=== PATIENT | female | born 2000 | race Caucasian/White ===

== ENCOUNTER 2022-04-05 10:44 | Outpatient (CLI) | payer BC, SELFPAY ==
--- NOTE | 2022-04-05 11:00 | CRLHL7_ITS ---
For Patients: As a result of the Century Cures Act, medical imaging exams and procedure reports are released immediately into your electronic medical record. You may view this report before your referring provider. If you have questions, please contact your health care provider. INDICATION: immediate hemorrhage COMPARISON: none TECHNIQUE: 2D mai scale and color Doppler images were acquired of the pelvis using a transabdominal and transvaginal approach. FINDINGS: Sonographic images demonstrate a normal size and smooth outer contour of the uterus. Uterus measures 10.4 cm in length by 6.1 cm in AP diameter by 7.8 cm in transverse dimension. The myometrium has a mildly heterogeneous echotexture. The endometrial lining appears normal and measures 4 mm in composite thickness. The right ovary measures 4.4 x 2.8 x 3.1 cm in size and the left ovary measures 2.9 x 1.1 x 2.2 cm. The ovaries demonstrate normal arterial and venous blood flow on color Doppler analysis. There are no suspicious fluid collections within the cul-de-sac. Simple right ovarian cyst measuring 3.1 cm. IMPRESSION: Mildly heterogeneous myometrium without focal leiomyoma. Endometrium appears normal and measures 4 millimeters. Dictated by Jacob Rabago MD @ 04/05/2022 11:54:27 AM (Electronically Signed)
== END 2022-04-05 10:45 | disposition home or self-care (01) ==
LOC: US 10:46
PROVIDERS: Visit Provider Registered Nurse
DX: O72.1 Other immediate postpartum hemorrhage (principal)
CPT/HCPCS: 76830; 76856

== ENCOUNTER 2023-02-08 13:47 | Outpatient (CLI) | payer BC, SELFPAY | END 2023-02-08 13:48 | disposition home or self-care (01) | PROVIDERS: Visit Provider Family Medicine | DX: R63.4 Abnormal weight loss (principal); R59.1 Generalized enlarged lymph nodes; Z11.3 Encounter for screening for infections with a predominantly sexual mode of transmission | CPT/HCPCS: 80053; 84443; 86703 ==

== ENCOUNTER 2023-04-04 11:03 | Outpatient (CLI) | payer BC, SELFPAY | END 2023-04-04 11:04 | disposition home or self-care (01) | PROVIDERS: Visit Provider Family Medicine | DX: L65.9 Nonscarring hair loss, unspecified (principal); R63.4 Abnormal weight loss | CPT/HCPCS: 84443 ==

== ENCOUNTER 2025-05-13 17:23 | Emergency (ER) | payer BC, SELFPAY ==
--- OUTSIDE RECORDS SUMMARY | 2025-05-08 17:07 | XMS_ITS | Encounter Summary ---
Author Organization [facility] Address [address] [place] [address] Care Team Providers Care Drum Cleaner Name Role Phone None Reported, Pcp Primary Care Provider Unavail able Reason for Visit * Reason Comments Vaginal Bleeding - Patient pres ents with concern for miscarriage. Patient states that she had pink discharge yesterday, 05/07/25, and none today. Patient has a positive test 2 weeks ago. Encounter Details Date Type Department Care Team (Late st Contact Info) Description 05/08/2025 5:07 PM CDT - 05/08/2025 6:32 PM CDT Emergency [place] [facility] [address] [place] [phone] Haile Trotter D.OMoi [address] [place] [id number] Bleeding Vaginal (Primary Dx) Discharge Disposition: Home or Self Care Social History Tobacco Use Types Packs/Day Years Used Date Smoking Tobacco: Former Cigarettes Smokeless Tobacco: Never Tobacco Cessation:Counseling Given: Not Answered Alcohol Use Standard Drinks/Week Comments Not Currently 0 (1 standard drink = 0.6 oz pur e alcohol) Comments Yes Sex and Gender Information Value Date Recorded Sex Assigned at Not on file 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 Gender Identity Not on file Sexual Orientation Not on file documented as of this encounter Last Filed Vital Signs Vital Sign Reading Time Taken Comments Blood Pressure 124/89 05/08/2025 6:31 PM CDT Pulse 99 05/08/2025 6:31 PM CDT Temperature 37.2 C (99 F) 05/08/2025 6:31 PM CDT Respiratory Rate 16 05/08/2025 6:31 PM CDT Oxygen Saturation 98% 05/08/2025 6:31 PM CDT Inhaled Oxygen Concentration - - Weight 46.7 kg (103 lb) 05/08/2025 4:43 PM CDT Height 162.6 cm (5' 4.02) 05/08/2025 4:43 PM CD T Body Mass Index 17.67 05/08/2025 4:43 PM CDT documented in this encounter Discharge Instructions * Discharge Instructions* Haile Trotter D.O. - 05/08/2025 6:29 PM CDT Your blood test was negative today and the ultrasound does not show any evidence of or ectopic. It is very possible it was a very early with miscarriage. You may use tylenol/ibuprofen as instructed if needed for pain/cramping Follow-up with your doctor as instructed or return to ED sooner if symptoms persist or worsen or any new concerns especially any worsening pain or bleeding. * Attachments The following attachments cannot be sent through Care Everywhere. * Miscarriage: What to Know (Albanian) documented in this encounter Medications at Time of Discharge albuterol (ProAir HFA) 90 mcg/actuation inhaler ProAir HFA 90 mcg/inh inhalation aerosol See Instructions, 2 puff(s) Inhalation every 3 hrs as needed for shortness of breath or wheezing, 1 each, 2 Refill(s) 01/14/2015 guanFACINE (Tenex) 1 mg tablet Take 0.5 tablets by mouth 2 (two) times a day. 01/13/2015 documented as of this encounter ED Notes * Haile Trotter D.O. - 05/08/2025 6:32 PM CDT SUBJECTIVE CHIEF COMPLAINT/REASON FOR VISIT Vaginal Bleeding - (Patient presents with concern for miscarriage. Patient states that she had pink discharge yesterday, 05/07/25, and none today. Patient has a positive test 2 weeks ago. ) HISTORY OF PRESENT ILLNESS Patient is 25-year-old female who presents today with vaginal bleeding concern for miscarriage. Patient reports her last menstrual cycle was March 19. Reports she took on 2 weeks ago that was positive. Reports over the last couple of days she has had light bleeding similar to previous periods. Patient denies any abdominal or pelvic pain, dizziness or vomiting. History provided by: Patient science interpreter needed/used: no REVIEW OF SYSTEMS Constitutional: Negative for fever. HENT: Negative for congestion. Respiratory: Negative for cough. Gastrointestinal: Negative for abdominal pain, diarrhea, nausea and vomiting. Genitourinary: Positive for vaginal bleeding. Musculoskeletal: Negative for back pain. Skin: Negative for wound. Neurological: Negative for weakness. All other systems reviewed and are negative. OBJECTIVE Initial Vitals Temperature 05/08/25 1646 37.6 ??C Pulse Rate 05/08/25 1646 109 Heart Rate -- Resp Rate 05/08/25 1646 18 Blood Pressure 05/08/25 1646 (!) 120/92 SpO2 05/08/25 1646 97 % Pain Score 05/08/25 1642 0 - No pain PHYSICAL EXAMINATION Constitutional: Nursing note and vitals reviewed. No distress. HENT: Head: Normocephalic and atraumatic. Nose: Nose normal. No nasal discharge. Mouth/Throat: Mucous membranes are moist. Eyes: Conjunctivae are normal. Neck: Neck supple. Cardiovascular: Exam reveals no friction rub. Pulmonary/Chest: Effort normal. No tachypnea. No respiratory distress. She has no rhonchi. Abdominal: Soft. There is no abdominal tenderness. There is no rebound and no guarding. Musculoskeletal: General: Normal range of motion. Cervical back: Normal range of motion and neck supple. Neurological: Alert. She is not disoriented. She exhibits normal muscle tone. Skin: Skin is warm and dry. She is not diaphoretic. Psychiatric: She has a normal mood and affect. Behavior is normal. ASSESSMENT/PLAN Assessment and Plan Patient is 25-year-old female who presents today with vaginal bleeding concern for miscarriage. SeeHPI for details. Pt afebrile, VSS on arrival to ED On exam, pt well appearing, in NAD, abdomen benign Labs obtained which resulted with a negative hCG, Rh positive, CBC within normal limits Pelvic ultrasound with no evidence of IUP or ectopic Given negative hCG suspect it was possibly very early with subsequent miscarriage. Discussed lab and imaging results with patient as well as plan for discharge with supportive care instructions, outpatient follow-up strict return precautions given including any worsening pain or bleeding.Patient expressed understanding agreed with plan will follow-up return the ED if any concerns.. Final Diagnoses: as of 05/08/251832 Bleeding Vaginal Haile Trotter D.O. 05/08/251834 documented in this encounter Plan of Treatment Not on file documented as of this encounter Procedures Procedure Name Priority Date/Time Associated Diagnosis Comments US OB FIRST TRIMESTER AND TRANSVAGINAL RAD - Semiurgent (Fast; most ED patients; some inpatients) 05/08/2025 5:51 PM CDT ABORH, RBC STAT 05/08/2025 5:03 PM CDT CBC WITH DIFFERENTIAL, B STAT 05/08/2025 5:03 PM CDT HUMAN CHORIONIC GONADOTROPIN (HCG), LUKE, STAT 05/08/2025 5:03 PM CDT documented in this encounter Results * US OB First Trimester and Transvaginal (05/08/2025 5:51 PM CDT) Anatomical Region Laterality Modality Body, Ultrasound OB RST LOS, Ultrasound ARZ LOS, Ultrasound FLA LOS N/A Ultrasound Impressions 05/08/2025 6:19 PM CDT No evidence of intrauterine . No findings to suggest ectopic . Recommend correlation to clinical symptoms and beta hCG, and close clinical follow-up. . Small amount of fluid and debris along the endometrial canal. Narrative 05/08/2025 6:19 PM CDT EXAM: US OB FIRST TRIMESTER AND TRANSVAGINAL COMPARISON: None TECHNIQUE: Transabdominal and Transvaginal FINDINGS: Number of Gestations: N/A Gestational age and BENNY by LMP or OB/EHR assignment: N/A INTRAUTERINE Embryo: Not seen, [place]ump Length: N/A Gestational Sac: Not seen Yolk Sac: Not seen Placenta Location: . N/A Age and BENNY by current ultrasound measurements: N/A, Cardiac activity: N/A Uterus: No unexpected findings. Right Ovary/Adnexa: Normal. Left Ovary/Adnexa: Normal. Cervical length:: Normal, greater than 2.5cm TV Endometrium: No endometrial thickening. Small amount of fluid and debris along the endometrial canal. Intraperitoneal Fluid: None. Procedure Note Abimael Banks M.D. - 05/08/2025 EXAM: US OB FIRST TRIMESTER AND TRANSVAGINAL COMPARISON: None TECHNIQUE: Transabdominal and Transvaginal FINDINGS: Number of Gestations: N/A Gestational age and BENNY by LMP or OB/EHR assignment: N/A INTRAUTERINE Embryo: Not seen, [place] Length: N/A Gestational Sac: Not seen Yolk Sac: Not seen Placenta Location: . N/A Age and BENNY by current ultrasound measurements: N/A, Cardiac activity: N/A Uterus: No unexpected findings. Right Ovary/Adnexa: Normal. Left Ovary/Adnexa: Normal. Cervical length:: Normal, greater than 2.5cm TV Endometrium: No endometrial thickening. Small amount of fluid and debrisalong the endometrial canal. Intraperitoneal Fluid: None. IMPRESSION: No evidence of intrauterine . No findings to suggest ectopicpregnancy. Recommend correlation to clinical symptoms and beta hCG, andclose clinical follow-up. . Small amount of fluid and debris along theendometrial canal. us Haile RAMOS OB US PROCEDURES Final R esult * hCG (Human Chorionic Gonadotropin), Quantitative, (05/08/2025 5:03 PM CDT) HCG, Quantitative, , P <1.0 <5 IU/L 05/08/2025 5:33 PM CDT NPRG Blood (Blood, Venous) 05/08/2025 5:03 PM CDT 05/08/2025 5:14 PM CDT us Haile Trotter D.O. LAB BLOOD ADD-ON Final Resul t Performing Organization Address City/[facility]/ZIP Co de Phone Number [facility] [address] [place] [address], [facility] [place] [address] [address] [place] [address] * ABO/Rh, RBC (05/08/2025 5:03 PM CDT) ABO Group O 05/08/2025 5:5 3 PM CDT NPRG Rh Type POS 05/08/2025 5:5 3 PM CDT NPRG Blood (Blood, Venous) 05/08/2025 5:03 PM CDT 05/08/2025 5:14 PM CDT us Haile Trotter D.O. LAB BLOOD BANK TEST ORDERABL ES Final Result Performing Organization Address [facility]/ZIP Co de Phone Number [facility] [address] [place] [address], [facility] [address] [address] * CBC with Differential, Blood (05/08/2025 5:03 PM CDT) Hemoglobin 13.3 11.6 - 15.0 g/dL 05/08/2025 5:17 PM CDT NPRG Hematocrit 40.5 35.5 - 44.9 % 05/08/2025 5:17 PM CDT NPRG Erythrocytes 4.52 3.92 - 5.13 x10(12)/L 05/08/2025 5:17 PM CDT NPRG MCV 89.6 78.2 - 97.9 fL 05/08/2025 5:17 PM CDT NPRG RBC Distrib Width 12.9 12.2 - 16.1 % 05/08/2025 5:17 PM CDT NPRG Platelet Count 232 157 - 371 x10(9)/L 05/08/2025 5:17 PM CDT NPRG Leukocytes 6.9 3.4 - 9.6 x10(9)/L 05/08/2025 5:17 PM CDT NPRG Neutrophils 4.33 1.56 - 6.45 x10(9)/L 05/08/2025 5:17 PM CDT NPRG Lymphocytes 2.15 0.95 - 3.07 x10(9)/L 05/08/2025 5:17 PM CDT NPRG Monocytes 0.34 0.26 - 0.81 x10(9)/L 05/08/2025 5:17 PM CDT NPRG Eosinophils 0.07 0.03 - 0.48 x10(9)/L 05/08/2025 5:17 PM CDT NPRG Basophils <0.04 0.01 - 0.08 x10(9)/L 05/08/2025 5:17 PM CDT NPRG Blood (Blood, Venous) 05/08/2025 5:03 PM CDT 05/08/2025 5:14 PM CDT us Haile Trotter D.O. LAB BLOOD ADD-ON Final Resul t [facility] [address] [place] [address], [facility] [address] [place] [address] documented in this encounter Visit Diagnoses Diagnosis Bleeding Vaginal- Primary documented in this encounter Additional Health Concerns Assessment Noted Time PHQ-9 Depression Total Score: 8 06/09/20 17 12:34 PM CDT documented as of this encounter Care Teams Drum Cleaner Relationship Specialty Start Date End Date None Reported, Pcp PCP - General Family Medicine 07/08/24 documented as of this encounter
--- OUTSIDE RECORDS SUMMARY | 2025-05-13 17:26 | XMS_ITS | Clinical Summary ---
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 For routine questions regarding patient records, call [phone] during business hours, M-F 8:00 AM - 5:00 PM Central Time. Record requests for emergency care only can be directed to [phone] at any time.[facility] Allergies Active Allergy Reactions Criticality Noted Date Comments Citalopram Rash,Nausea And Vomiting High 06/30/2015 Fluoxetine Rash,Nausea And Vomiting High 06/30/2015 Latex, Natural Rubber Itching,Rash,Short ness of breath (Reselect Reaction) High 09/06/2019 Medications guanFACINE (Tenex) 1 mg tablet Take 0.5 tablets by mouth 2 (two) times a day. 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 Bleeding Vaginal (Primary Dx) Discharge Disposition: Home or Self Care from Last 3 Months Immunizations Immunization Administration Dates Next Due 4vHPV (discontinued) 03/07/2015,07/31/2013 DTaP (Daptacel) 1999 DTaP (Infanrix, [employer]) 04/09/2003,02/01/2000, 1999 HepB, Unspecified 04/24/2004 Hib-HepB 04/21/2000 IPV 04/21/2000 Influenza Split 07/12/2006 Influenza, Unspecified 06/09/2017,07/31/2007 MMR 04/21/2000 Tdap 07/08/2024,12/24/2021,01/14/2020 ,08/09/2014 CARRIE 10/04/2000 Family History Medical History Relation Name Comments Alcohol abuse Father Chronic pain Mother Depression Mother Relation Name Status Comments Father Mother Social History Tobacco Use Types Packs/Day Years Used Date Smoking Tobacco: Former Cigarettes Smokeless Tobacco: Never Tobacco Cessation:Counseling Given: Not Answered Alcohol Use Standard Drinks/Week Comments Not Currently 0 (1 standard drink = 0.6 oz pur e alcohol) Comments Yes Sex and Gender Information Value Date Recorded Sex Assigned at Not on file 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 Gender Identity Not on file Sexual Orientation Not on file Last Filed Vital Signs Vital Sign Reading [...] Mass Index 17.67 05/08/2025 4:43 PM CDT Plan of Treatment Health Maintenance Due Date Last Done Comments Depression Monitoring (PHQ-9) 1999 HIV Screening 1999 Hepatitis C Screening 1999 Cervical/Vaginal Cancer Screening 07/17/2024 07/17/2021 Depression Monitoring (PHQ-9 for quality tracking) 08/29/2024 COVID-19 Vaccine ( season) 2025 Influenza Vaccine (#1) 2025 7, 04/29/2015, 09/05/2014, Additional history exists Tobacco Cessation counseling 05/08/2026 05/08/2025 DTaP,Tdap,and Td Vaccines (9 - Td or Tdap) 07/08/2034 07/08/2024, 12/24/2021, 01/14/2020, Additional history exists RSV vaccine - (32-36 weeks) or 60+ years (1 - 1-dose 75+ series) 2074 IPV Vaccines Completed 04/09/2003, 03/30, 1999, Additional history exists Hepatitis B Vaccines Completed 04/24/2004, 10/04/2000, 04/21/2000, Additional history exists Varicella Vaccines Completed 08/09/2014, 10/04/2000 HPV Vaccines Completed 03/07/2015, 09/30, 08/09/2014, Additional history exists Hepatitis B Screening Discontinued 08/27/2019 Pneumococcal vaccine (0-49 years) Aged Out No longer eligible based on patient's age to complete this topic Procedures Procedure Name Priority Date/Time Associated Diagnosis Comments US OB FIRST TRIMESTER AND TRANSVAGINAL RAD - Semiurgent (Fast; most ED patients; some inpatients) 05/08/2025 5:51 PM CDT HUMAN CHORIONIC GONADOTROPIN (HCG), LUKE STAT 05/08/2025 5:03 PM CDT ABORH, RBC STAT 05/08/2025 5:03 PM CDT CBC WITH DIFFERENTIAL, B STAT 05/08/2025 5:03 PM CDT from Last 3 Months Results * US OB First Trimester and [...] OB/EHR assignment: N/A INTRAUTERINE Embryo: Not seen, [place]-Rump Length: N/A Gestational Sac: Not seen Yolk [...] OB/EHR assignment: N/A INTRAUTERINE Embryo: Not seen, [place]ump Length: N/A Gestational Sac: Not seen Yolk [...] and debris along theendometrial canal. us Haile Trotter D.O. IMG OB US PROCEDURES Final R esult * ABO/Rh, RBC (05/08/2025 5:03 PM CDT) ABO Group O 05/08/2025 5:5 3 PM CDT NPRG Rh Type POS 05/08/2025 5:5 3 PM CDT NPRG Blood (Blood, Venous) 05/08/2025 5:03 PM CDT 05/08/2025 5:14 PM CDT us Haile Trotter D.O. LAB BLOOD BANK TEST ORDERABL ES Final Result [facility] [address] [place] [address], [facility] [address] [place] [address] * CBC with Differential, Blood (05/08/2025 5:03 [...] D.O. LAB BLOOD ADD-ON Final Resul t [facility] [address] [place] [address], [facility] [address] [place] [address] * hCG (Human Chorionic Gonadotropin), Quantitative, (05/08/2025 5:03 PM CDT) HCG, Quantitative, , P <1.0 <5 IU/L 05/08/2025 5:33 PM CDT NPRG Blood (Blood, Venous) 05/08/2025 5:03 PM CDT 05/08/2025 5:14 PM CDT us Haile Trotter D.O. LAB BLOOD ADD-ON Final Resul t [facility] [address] [place] [address], [facility] [address] [place] [address] from Last 3 Months Insurance [facility] Care Teams Wash Oil Cooler Operator Relationship Specialty Start Date End Date None Reported, Pcp PCP - General Family Medicine 07/08/24
[2025-05-13 18:13] VITALS: BP 123/80; PULSE 106; RESP 20; TEMP 37.9; O2SAT 98; BMI 18.2
[2025-05-13 19:13] LABS: PCR FLU A Negative PCR FLU A (Negative); PCR FLU B Negative PCR FLU B (Negative); PCR RSV Negative PCR RSV (Negative); SARS PCR* Negative SARS-CoV-2 (Negative)
--- NOTE | 2025-05-13 19:26 | ED.GENADULT ---
HPI - General Adult General Time Seen by Provider: 19:26 Date Seen: 05/13/25 Chief complaint: Cough Stated complaint: Cant keep food down Time Seen by Provider: 05/13/25 19:12 Source: patient, family and RN notes reviewed Mode of arrival: ambulatory Limitations: no limitations History of Present Illness HPI narrative: This 25-year-old female is coming in with illness for about 10 days. She started with cough and cold symptoms and has continued to get worse. She states she did just have a miscarriage recently, no chance for . She is not having abdominal pain but is having significant nasal congestion and coughing. Instead of improving, she is been getting worse. Her significant other is here with her, he has been feeling better as far as his cough but today started noticing left ear pain, he is being seen as well. He is not having fevers or coughing like she was. Her eyes have felt goopy at times. She is coughing, she is blowing out nasal drainage that is yellow-green, she coughs up sputum at times that is yellow-green. She does feel like she is getting significant postnasal drainage. She had post-tussive emesis once. She has significant facial and sinus pain. Related Data Home Medications ?Medication ?Instructions ?Recorded ?Confirmed No Known Home Medications 05/22/24 05/22/24 Previous Rx's ?Medication ?Instructions ?Recorded terbinafine HCl 250 mg tablet 250 mg PO QDAY #42 tabs 05/22/24 Allergies Allergy/AdvReac Type Severity Reaction Status Date / Time citalopram Allergy Intermediate N/V and Verified 05/22/24 09:21 rash fluoxetine Allergy Intermediate N/V and Verified 05/22/24 09:21 rash latex Allergy Intermediate Itchy and Verified 05/22/24 09:21 red Review of Systems Narrative: As per HPI. PFS PFS Medical History Sleep apnea ?G47.30 - Sleep apnea, unspecified (ICD-10) COVID-19 affecting in third trimester ?O98.513 - Other viral diseases complicating , third trimester (ICD-10) ?U07.1 - COVID-19 (ICD-10) Underweight ?R63.6 - Underweight (ICD-10) History of premature rupture of membranes ?Z87.59 - Personal history of other complications of , childbirth and the puerperium (ICD-10) Tobacco use ?Z72.0 - Tobacco use (ICD-10) Vaginal delivery ?O80 - Encounter for full-term uncomplicated delivery (ICD-10) Spontaneous ?O03.9 - Complete or unspecified spontaneous without complication (ICD-10) Mild intermittent asthma without complication (12/04/15) ?J45.20 - Mild intermittent asthma, uncomplicated (ICD-10) History of premature rupture of membranes (PPROM) ?Z87.59 - Personal history of other complications of , childbirth and the puerperium (ICD-10) History of delivery, currently in third trimester ?O09.893 - Supervision of other high risk pregnancies, third trimester (ICD-10) Encounter for supervision of high risk in third trimester, antepartum ?O09.93 - Supervision of high risk , unspecified, third trimester (ICD-10) ?Z34.90 - Encounter for supervision of normal , unspecified, unspecified trimester (ICD-10) Social History What is your current living situation?: I presently have a place to live Problems where you live: declined to answer In the past 12 months, utilities in danger of being shut off: no In past 12 months, lack of transportation kept you from medical appts, meetings, work, or getting things needed for daily living: no In the past 12 mos, have been you worried that your food would run out before you had money to buy more?: never true In the past 12 mos, the food you bought just didn't last and you didn't have money to buy more?: never true Smoking Status: Former smoker How often does anyone, including family, friends and others, physically hurt you: never How often does anyone, including family, friends and others, insult or talk down to you: sometimes How often does anyone, including family, friends and others, threaten you with harm: never How often does anyone, including family, friends and others, scream or curse at you: rarely Health Related Social Needs: Other personal risk factors, not elsewhere classified (Z91.89) Exam Const: Vital Signs, click to edit/add: Vital Signs - 24 hr 05/13/25 18:13 Temperature 100.2 F H Pulse Rate [Pulse Oximeter] 106 H Respiratory Rate 20 Blood Pressure [Ri ght Upper Arm] 123/80 Pulse Oximetry 98 Oxygen Delivery Me thod Room Air This 25-year-old female is lying on the bed, she has a coarse harsh sounding cough. She looks like she does not feel well but is in no distress. Sclera slightly injected but dry, no periorbital swelling or erythema, no mattering or discharge noted. She has got some scab on her left lower nostril, mucosal looks erythematous and swollen. She has pain when I palpate over her sinuses over her cheeks. Oropharynx is normal, dentition in moderate repair. Neck supple, no adenopathy. Lungs are actually clear, no wheezing or crackles, no tachypnea. She has no significant hoarseness. Documenting provider has reviewed patient's vital signs: yes Course Course ED Course: Discussed with patient that I think clinically she has sinusitis, postnasal drainage can be significant with this and cause coughing. Did discuss doing a chest x-ray but she declines as it really is not going to change my management, I support this approach. We will get her antibiotics, she will treat conservatively and follow up if not improving. Did review that her triple viral swab was negative. Vital Signs Vital signs: Initial Vital Signs Temperature 100.2 F H 05/13/25 18:13 Temperature Source Temporal Artery Scan 05/13/25 18:13 Pulse Rate 106 H 05/13/25 18:13 Respiratory Rate 20 05/13/25 18:13 Blood Pressure 123/80 05/13/25 18:13 Blood Pressure Mean 94 05/13/25 18:13 Blood Pressure Position Sitting 05/13/25 18:13 Pulse Oximetry 98 05/13/25 18:13 Oxygen Delivery Method Room Air 05/13/25 18:13 Vital Signs Temperature 100.2 F H 05/13/25 18:13 Pulse Rate 106 H 05/13/25 18:13 Respiratory Rate 20 05/13/25 18:13 Blood Pressure 123/80 05/13/25 18:13 Pulse Oximetry 98 05/13/25 18:13 Oxygen Delivery Method Room Air 05/13/25 18:13 Temperature 100.2 F H 05/13/25 18:13 Pulse Rate 106 H 05/13/25 18:13 Respiratory Rate 20 05/13/25 18:13 Blood Pressure 123/80 05/13/25 18:13 Pulse Oximetry 98 05/13/25 18:13 Oxygen Delivery Method Room Air 05/13/25 18:13 Medical Decision Making Lab Data Lab results reviewed: Yes I reviewed the patient's lab results Labs: Lab Results 05/13/25 Range/Units 18:22 SARS-CoV-2 (PCR) Negative SARS-CoV-2 (Negative) Influenza Type A (PCR) Negative PCR FLU A (Negative) Influenza Type B (PCR) Negative PCR FLU B (Negative) RSV (PCR) Negative PCR RSV (Negative) Discharge Plan Discharge Clinical Impression: Acute bacterial sinusitis Patient Disposition: Home, Self-Care Condition: Stable Instructions: Sinusitis (ED) Additional Instructions: Start Augmentin 875 mg, 1 orally twice a day for 10 days. This is prescribed from [facility]. Can use [id number] medicines like Tylenol, ibuprofen, cough and cold medicines per package instructions as needed for symptom control. If you are not improving over the next couple days, feel you are worsening at any point, please seek re-evaluation. Rest and stay hydrated. Activity Level: Activity as Tolerated Prescriptions: No Action No Known Home Medications terbinafine HCl 250 mg tablet 250 mg PO QDAY Qty: 42 0RF Follow Up/Referrals: Luan Samuel MD [Primary Care Provider, Family Practice] Stand Alone Forms: [facility] Info Instructions
== END 2025-05-13 20:08 | disposition home or self-care (01) ==
PROVIDERS: Emergency Provider Family Medicine
DX: J32.9 Chronic sinusitis, unspecified (principal); B96.89 Other specified bacterial agents as the cause of diseases classified elsewhere
CPT/HCPCS: 87631; 99283

== ENCOUNTER 2025-08-09 12:14 | Emergency (ER) | payer BC, SELFPAY ==
[2025-08-09 12:40] VITALS: BP 123/66; PULSE 86; RESP 18; TEMP 37.4; O2SAT 100
--- NOTE | 2025-08-09 14:38 | ED.GENADULT ---
HPI - General Adult General Chief complaint: Nausea/Vomiting Stated complaint: Nauseous and is ukn week History of Present Illness HPI narrative: This patient left without being seen. She was not seen by provider. Related Data Home Medications ?Medication ?Instructions ?Recorded ?Confirmed No Known Home Medications 05/22/24 08/09/25 Allergies Allergy/AdvReac Type Severity Reaction Status Date / Time citalopram Allergy Intermediate N/V and Verified 08/09/25 12:46 rash fluoxetine Allergy Intermediate N/V and Verified 08/09/25 12:46 rash latex Allergy Intermediate Itchy and Verified 08/09/25 12:46 red [facility] Medical History Sleep apnea ?G47.30 - Sleep apnea, unspecified (ICD-10) COVID-19 affecting in third trimester ?O98.513 - Other viral diseases complicating , third trimester (ICD-10) ?U07.1 - COVID-19 (ICD-10) Underweight ?R63.6 - Underweight (ICD-10) History of premature rupture of membranes ?Z87.59 - Personal history of other complications of , childbirth and the puerperium (ICD-10) Tobacco use ?Z72.0 - Tobacco use (ICD-10) Vaginal delivery ?O80 - Encounter for full-term uncomplicated delivery (ICD-10) Spontaneous ?O03.9 - Complete or unspecified spontaneous without complication (ICD-10) Mild intermittent asthma without complication (12/04/15) ?J45.20 - Mild intermittent asthma, uncomplicated (ICD-10) History of premature rupture of membranes (PPROM) ?Z87.59 - Personal history of other complications of , childbirth and the puerperium (ICD-10) History of delivery, currently in third trimester ?O09.893 - Supervision of other high risk pregnancies, third trimester (ICD-10) Encounter for supervision of high risk in third trimester, antepartum ?O09.93 - Supervision of high risk , unspecified, third trimester (ICD-10) ?Z34.90 - Encounter for supervision of normal , unspecified, unspecified trimester (ICD-10) Social History What is your current living situation?: I presently have a place to live Problems where you live: declined to answer In the past 12 months, utilities in danger of being shut off: no In past 12 months, lack of transportation kept you from medical appts, meetings, work, or getting things needed for daily living: no In the past 12 mos, have been you worried that your food would run out before you had money to buy more?: never true In the past 12 mos, the food you bought just didn't last and you didn't have money to buy more?: never true Smoking Status: Former smoker How often does anyone, including family, friends and others, physically hurt you: never How often does anyone, including family, friends and others, insult or talk down to you: sometimes How often does anyone, including family, friends and others, threaten you with harm: never How often does anyone, including family, friends and others, scream or curse at you: rarely Health Related Social Needs: Other personal risk factors, not elsewhere classified (Z91.89) Exam Const: Vital Signs, click to edit/add: Vital Signs - 24 hr 08/09/25 12:40 Temperature 99.3 F Pulse Rate [Right Pulse Oximeter] 86 Respiratory Rate 18 Blood Pressure [Ri ght Upper Arm] 123/66 Pulse Oximetry 100 Oxygen Delivery Me thod Room Air Course Vital Signs Vital signs: Initial Vital Signs Temperature 99.3 F 08/09/25 12:40 Temperature Source Temporal Artery Scan 08/09/25 12:40 Pulse Rate 86 08/09/25 12:40 Pulse Rhythm Regular 08/09/25 12:40 Pulse Strength 3+ Normal 08/09/25 12:40 Respiratory Rate 18 08/09/25 12:40 Blood Pressure 123/66 08/09/25 12:40 Blood Pressure Mean 85 08/09/25 12:40 Blood Pressure Position Sitting 08/09/25 12:40 Pulse Oximetry 100 08/09/25 12:40 Oxygen Delivery Method Room Air 08/09/25 12:40 Vital Signs Temperature 99.3 F 08/09/25 12:40 Pulse Rate 86 08/09/25 12:40 Respiratory Rate 18 08/09/25 12:40 Blood Pressure 123/66 08/09/25 12:40 Pulse Oximetry 100 08/09/25 12:40 Oxygen Delivery Method Room Air 08/09/25 12:40 Temperature 99.3 F 08/09/25 12:40 Pulse Rate 86 08/09/25 12:40 Respiratory Rate 18 08/09/25 12:40 Blood Pressure 123/66 08/09/25 12:40 Pulse Oximetry 100 08/09/25 12:40 Oxygen Delivery Method Room Air 08/09/25 12:40 Discharge Plan Discharge Patient Disposition: Left Without Being Seen
== END 2025-08-09 14:38 | disposition left against medical advice (07) ==
LOC: ED 14:37
PROVIDERS: Emergency Provider Emergency Medicine
DX: R11.0 Nausea (principal); Z53.21 Procedure and treatment not carried out due to patient leaving prior to being seen by health care provider
CPT/HCPCS: 99281

== ENCOUNTER 2025-08-16 14:32 | Outpatient (CLI) | payer BC, SELFPAY ==
--- NOTE | 2025-08-16 14:45 | CRLHL7_ITS ---
For Patients: As a result of the Century Cures Act, medical imaging exams and procedure reports are released immediately into your electronic medical record. You may view this report before your referring provider. If you have questions, please contact your health care provider. OB ULTRASOUND INDICATION: Dating. TECHNIQUE: Real time mai scale imaging of the fetus was performed. Transvaginal imaging performed. LMP: Unknown. Miscarriage 06/06/2025. Previous US: No. CRL: 1.1 cm. 7 w 1 d. BENNY: 04/03/2026. FHR: 134 BPM. Gestational sac: 2.4 cm. Appears within normal limits. Yolk sac: 2.5 mm. Appears within normal limits. Right ovary: N/V. Left ovary: WNL. 3.0 x 2.3 x 2.9 cm. CL. IMPRESSION: Single living intrauterine measures 7 weeks 1 day and sonographic due date 04/03/2026. Jacob Rabago M.D. Diagnostic Radiologist [email or web address] MARIO/Dictated by: Jacob Rabago MD @ 08/16/2025 3:23:00 PM (Electronically Signed)
== END 2025-08-16 14:33 | disposition home or self-care (01) ==
LOC: US 14:34
PROVIDERS: Visit Provider Registered Nurse
DX: O09.91 Supervision of high risk pregnancy, unspecified, first trimester (principal); Z3A.01 Less than 8 weeks gestation of pregnancy; Z87.59 Personal history of other complications of pregnancy, childbirth and the puerperium; Z34.91 Encounter for supervision of normal pregnancy, unspecified, first trimester; Z12.4 Encounter for screening for malignant neoplasm of cervix
CPT/HCPCS: 76817

== ENCOUNTER 2025-08-16 15:28 | Outpatient (CLI) | payer BC, SELFPAY ==
[2025-08-16 20:26] LABS: Chlamydia DNA Amplified* NOT DETECTED (No Detected); GC DNA Amplified* NOT DETECTED (No Detected)
[2025-08-18 20:29] LABS: HPV Source Cervix
[2025-08-21 15:07] LABS: Pap Test Digital Imaging Done
== END 2025-08-16 15:29 | disposition home or self-care (01) ==
PROVIDERS: Visit Provider Registered Nurse
DX: Z34.91 Encounter for supervision of normal pregnancy, unspecified, first trimester (principal); Z12.4 Encounter for screening for malignant neoplasm of cervix
CPT/HCPCS: 83020; 83021; 85660; 86703; 86704; 86706; 86762; 86780; 86787; 86803; 86850; 86900; 86901; 87086; 87340; 87491; 87591; 87624; 87625; 88141; 88142; 88175